=== PATIENT | female | born 1985 | race Asian ===

== ENCOUNTER 2016-10-31 16:19 | Emergency (ER) | payer OTHER ==
[~2016-10-31] VITALS: Ht 160 cm; Wt 81.2 kg
[2016-10-31 16:59] VITALS: BP 136/88
[2016-10-31] MEDS ORDERED: ACETAMINOPHEN EXTRA STRENGTH 500 MG TAB PO ONE (17:40)
[2016-10-31] MEDS ORDERED: ALBUTEROL 0.083% 2.5 MG/3 ML NEBU INH ONE (17:40)
[2016-10-31 18:52] VITALS: BP 136/88
--- NOTE | 2016-10-31 18:53 | NUR ---
PATIENT IS A 31 YO FEMALE BIB SELF FOR COUGH AND FEVER, AWAKE AND ALERT. TO OVERFLOW 1 FOR MD [place]O. SEEN BY
--- NOTE | 2016-10-31 18:54 | NUR ---
Patient discharged with v/s stable. Written and verbal after care instructions given and explained. Patient alert, oriented and verbalized understanding of instructions. Ambulatory with steady gait. All questions addressed prior to discharge. ID band removed. Patient advised to follow up with PMD. Rx of ALBUTEROL INHALER, KEFLEX, AND PREDNISONE. given. Patient educated on indication of medication including possible reaction and side effects. Opportunity to ask questions provided and answered.
--- NOTE | 2016-11-02 18:24 | NUR ---
URINE CULTURE RESULTS RECEIVED REVIEW OF DISCHARGE REVEALED PATIENT SENT HOME ON KEFLEX 500 MG 1 T PO TID FOR 7 DAYS.
== END 2016-10-31 18:54 | disposition home or self-care (01) ==
LOC: MED 16:19
DX: J20.9 Acute bronchitis, unspecified (principal); N39.0 Urinary tract infection, site not specified; R03.0 Elevated blood-pressure reading, without diagnosis of hypertension; R73.9 Hyperglycemia, unspecified
CPT/HCPCS: 71020; 81001; 81025; 87086; 87186; 94640; 99285; J7613